=== PATIENT | male | born 1970 | race African-American/Black ===

== ENCOUNTER 2018-10-18 10:27 | Inpatient (IN) | payer MEDICARE, OTHER ==
[~2018-10-18] VITALS: Ht 180.3 cm; Wt 85.7 kg
--- NOTE | 2018-10-18 10:35 | NUR ---
PT BIB [facility] MID CP W/ SOB WHILE IN COURT STARTED 2HRS AGO, PT IS AAOX4, NOT IN RESPIRATORY DISTRESS, VS STABLE, KEPT RESTED AND COMFORTABLE.
--- NOTE | 2018-10-18 10:38 | NUR ---
ER PA AT BED SIDE FOR EVAL.
--- NOTE | 2018-10-18 10:39 | NUR ---
LABS DRAWNED AND SENT TO LAB.
[2018-10-18 10:44] LABS: BASOPHILS # (AUTO) 0.1 /CMM (0.0-0.2); BASOPHILS % (AUTO) 1.1 % (0.0-2.0); EOSINOPHILS % (AUTO) 3.4 % (0.0-6.0); HEMATOCRIT 43 % (39-51); HEMOGLOBIN 14.5 g/dL (13.5-17.5); LYMPHOCYTES % (AUTO) 32.2 % (20.0-44.0); MEAN CORPUSCULAR HGB CONC 34 g/dl (31.0-36.0); MEAN CORPUSCULAR VOLUME 97 fL (80-96); MONOCYTES # (AUTO) 0.8 /CMM (0.1-1.30); MONOCYTES % (AUTO) 12.9 % (2.0-12.0); NEUTROPHILS # (AUTO) 3.1 /CMM (1.8-8.9); NEUTROPHILS % (AUTO) 50.4 % (43.0-81.0); PLATELET COUNT (AUTO) 193 /CMM (150-450); RED BLOOD CELL COUNT(AUTO) 4.45 MIL/uL (4.5-6.0); WHITE BLOOD COUNT (AUTO) 6.2 K/uL (4.3-11.0)
[2018-10-18] MEDS ORDERED: predniSONE 20 MG TABLET ONE (10:48)
--- NOTE | 2018-10-18 10:50 | NUR ---
CALLED RT FOR BREATHING TREAMENT.
[2018-10-18 10:55] LABS: CALCIUM, SERUM 9.2 mg/dL (8.5-10.1); CREATININE 1.1 mg/dL (0.6-1.3); POTASSIUM 3.5 mmol/L (3.5-5.1)
[2018-10-18] MEDS ORDERED: ALBUTEROL FS 2.5 MG/3 ML VIAL.NEB ONE (10:57)
[2018-10-18] MEDS ORDERED: IPRATROPIUM NEB FS 0.5 MG/2.5 ML AMPUL.NEB ONE (10:57)
[2018-10-18] MEDS ORDERED: ALBUTEROL FS 2.5 MG/3 ML VIAL.NEB NEB ONE (11:00)
[2018-10-18] MEDS ORDERED: IPRATROPIUM NEB FS 0.5 MG/2.5 ML AMPUL.NEB NEB ONE (11:00)
[2018-10-18] MEDS ORDERED: predniSONE 20 MG TABLET PO ONE (11:00)
[2018-10-18] MEDS ORDERED: FLUT1DIS3 IH (11:44)
[2018-10-18] MEDS ORDERED: OMEP20CA10 PO (11:44)
[2018-10-18] MEDS ORDERED: ALBU18HF2 IH (11:44)
[2018-10-18] MEDS ORDERED: CELE-85 PO (11:44)
[2018-10-18] MEDS ORDERED: HYDR-3980 PO (11:44)
[2018-10-18] MEDS ORDERED: QUET300T2 PO (11:44)
[2018-10-18] MEDS ORDERED: ASPI-1152 PO (11:44)
[2018-10-18] MEDS ORDERED: CLIN300C11 PO (11:44)
[2018-10-18] MEDS ORDERED: TRAM50TA2 PO (11:44)
--- NOTE | 2018-10-18 11:53 | NUR ---
CALLED NURSING SUP REQUESTED TELE BED FOR THIS PATIENT.
[2018-10-18] MEDS ORDERED: NITROGLYCERIN PACKET 1 GM PACKET TD ONE (12:00)
[2018-10-18] MEDS ORDERED: ASPIRIN 325 MG TABLET PO ONE (12:00)
[2018-10-18] MEDS ORDERED: NITROGLYCERIN PACKET 1 GM PACKET ONE ×2 (12:14→12:16)
[2018-10-18] MEDS ORDERED: ASPIRIN 325 MG TABLET ONE (12:14)
--- NOTE | 2018-10-18 12:19 | NUR ---
ADMIT TO 310-2 TELE DX CHEST PAIN, NSTEMI ACCEPTING CORI ANGEL MD
--- NOTE | 2018-10-18 12:58 | NUR ---
REPORT GIVEN TO PRASHANT RICHARD FOR GAVIN.
[2018-10-18 13:35] VITALS: BP 152/87
[2018-10-18] MEDS ORDERED: Z GUARD REMEDY 2 OZ OINT TP PRN (14:00)
[2018-10-18] MEDS ORDERED: ONDANSETRON HCL/PF 4 MG/2 ML VIAL IVP PRN (14:00)
[2018-10-18] MEDS ORDERED: ACETAMINOPHEN 325 MG TABLET PO PRN (14:00)
[2018-10-18] MEDS ORDERED: MAG HYDROX/AL HYDROX/SIMETH 30 ML UDC PO PRN (14:00)
[2018-10-18] MEDS ORDERED: ZOLPIDEM TARTRATE 5 MG TABLET PO PRN (14:00)
[2018-10-18] MEDS ORDERED: HYDROCODONE/APAP 5/325MG 1 EACH TABLET PO PRN (14:00)
[2018-10-18] MEDS ORDERED: MAGNESIUM HYDROXIDE 30 ML UDC PO PRN (14:00)
--- NOTE | 2018-10-18 14:00 | NUR ---
CORPSMAN NOTES RECEIVED PT. FROM ER IN ROOM 310 BED 2. PT. IS A&OX4. BP WAS ELEVATED, PT. C/O BURNING SENSATION IN CHEST WITHOUT PAIN RADIATING. ADMITTING MD WAS NOTIFIED OF PT.'S SYMPTOMS. NEW ORDERS GIVEN FOR EKG STAT, AND RESULTS WERE SENT TO MD. BELONGINGS WERE CHECKED AND PT. SIGNED PAPER. IV IS INTACT AND PATENT. WILL CONTINUE TO ASSESS AND MONITOR.
[2018-10-18 14:08] VITALS: BP 152/87
[2018-10-18] MEDS ORDERED: HYDROMORPHONE INJ 2 MG/ML DISP.SYRIN IV PRN (14:30)
[2018-10-18] MEDS: PANTOPRAZOLE 40 MG VIAL IV SCH (14:38)
[2018-10-18] MEDS ORDERED: ENOXAPARIN SODIUM 40 MG/0.4 ML DISP.SYRIN SQ SCH ×2 (15:00)
[2018-10-18 16:00] VITALS: BP 164/99
[2018-10-18] MEDS ORDERED: hydrALAZINE HCL IV 20 MG VIAL IV PRN (16:00)
[2018-10-18] MEDS ORDERED: TRAMADOL HCL 50 MG TABLET PO PRN (16:00)
[2018-10-18] MEDS ORDERED: IPRATROPIUM BROMIDE 14 GM INHALER (or 12.9 GM) IH PRN (16:00)
[2018-10-18] MEDS ORDERED: ALBUTEROL FS 2.5 MG/0.5 ML VIAL.NEB ONE (16:31)
[2018-10-18] MEDS: ALBUTEROL FS 2.5 MG/0.5 ML VIAL.NEB NEB SCH ×3 (16:34→22:43)
[2018-10-18] MEDS ORDERED: AZITHROMYCIN 500 MG in IV D5W 250 ML IV SCH (17:00)
[2018-10-18] MEDS ORDERED: IPRATROPIUM NEB FS 0.5 MG/2.5 ML AMPUL.NEB IH PRN ×2 (17:00→17:30)
[2018-10-18] MEDS ORDERED: IPRATROPIUM NEB FS 0.5 MG/2.5 ML AMPUL.NEB NEB PRN (17:30)
[2018-10-18] MEDS ORDERED: CEFTRIAXONE 1 G in IV D5W 50 ML IV SCH ×2 (18:00→21:00)
[2018-10-18] MEDS: methylPREDNISolone SOD SUCC 125 MG/2ML VIAL IV SCH ×2 (18:07→18:09)
--- NOTE | 2018-10-18 19:30 | NUR ---
RN CLOSING NOTES PT. IN BED A&OX4. BREATHING UNLABORED ON ROOM AIR. PT. IS ON TELE MONITOR. NO S/S OF ACUTE DISTRESS. PT. HAS IV ANTIBIOTICS RUNNING. BED IS IN LOWEST, AND LOCKED POSITION. CALL LIGHT WITHIN REACH. ALL NEEDS MET. WILL ENDORSE REPORT TO NURSE.
--- NOTE | 2018-10-18 19:31 | NUR ---
RN Notes Received patient awake, alert and oriented x4, verbalizing feels tired and wants to sleep. On room air and tolerated well. Denies any pain at this time. Tele monitor reads sinus rhythm with inverted T wave with heart rate at 74. IV access on right arm patent and intact with ongoing IV atb infusing well. Patient is ambulatory with steady gait noted. Voiding well. Kept comfortable and attended. Will continue to monitor patient.
[2018-10-18 20:00] VITALS: BP 140/83
[2018-10-18 22:00] VITALS: BP 140/83
[2018-10-18] MEDS ORDERED: QUETIAPINE FUMARATE 100 MG TABLET PO SCH (22:00)
[2018-10-18 23:42] VITALS: BP 138/85
[2018-10-19] MEDS: ALBUTEROL FS 2.5 MG/0.5 ML VIAL.NEB NEB SCH ×3 (03:30→11:39)
[2018-10-19 04:00] VITALS: BP 117/74
--- NOTE | 2018-10-19 06:14 | NUR ---
TRIAGE TREATMENT THERAPIST ASSISTING IN RAPID RESPONSE TO MYNOR SITE.
--- NOTE | 2018-10-19 06:50 | NUR ---
RN Notes Patient slept well overnight, Vital signs stable, afebrile. Patient verbalized he feels better. Denies chest pain, nausea and vomiting. Cough at times, dry cough. Tele monitor readsSinus rhythm with inverted T wave. All needs attended. Will endorse to morning RN for continuity of care.
[2018-10-19 07:12] LABS: BASOPHILS % (AUTO) 0.2 % (0.0-2.0); EOSINOPHILS % (AUTO) 0.1 % (0.0-6.0); HEMATOCRIT 40 % (39-51); HEMOGLOBIN 13.5 g/dL (13.5-17.5); LYMPHOCYTES # (AUTO) 0.6 /CMM (0.8-4.8); LYMPHOCYTES % (AUTO) 5.8 % (20.0-44.0); MEAN CORPUSCULAR HGB CONC 34 g/dl (31.0-36.0); MEAN CORPUSCULAR VOLUME 97 fL (80-96); MONOCYTES # (AUTO) 0.8 /CMM (0.1-1.30); MONOCYTES % (AUTO) 7.7 % (2.0-12.0); NEUTROPHILS % (AUTO) 86.2 % (43.0-81.0); PLATELET COUNT (AUTO) 157 /CMM (150-450); RED BLOOD CELL COUNT(AUTO) 4.13 MIL/uL (4.5-6.0); WHITE BLOOD COUNT (AUTO) 10.5 K/uL (4.3-11.0)
[2018-10-19 07:21] LABS: CALCIUM, SERUM 8.6 mg/dL (8.5-10.1); POTASSIUM 3.7 mmol/L (3.5-5.1)
--- NOTE | 2018-10-19 07:29 | NUR ---
RN OPENING NOTES PT WAS RECEIVED IN BED AT LOWEST AND LOCKED POSITION WITH SIDE RAILS UP X2, A/O X4, BREATHING EVEN AND UNLABORED ON RA, NO S/S OF PAIN OR DISTRESS NOTED, IV PATENT AND INTACT, SAFETY PRECAUTIONS IN PLACE, CALL LIGHT WITHIN REACH, WILL MONITOR ACCORDINGLY
[2018-10-19 07:34] LABS: THYROID STIMULATING HORMONE 0.791 uIU/mL (0.358-3.74)
[2018-10-19 07:41] LABS: PHOSPHORUS 8.9 mg/dL (2.5-4.9)
[2018-10-19 08:47] VITALS: BP 123/82
[2018-10-19] MEDS: methylPREDNISolone SOD SUCC 125 MG/2ML VIAL IV SCH (08:53)
[2018-10-19] MEDS: PANTOPRAZOLE 40 MG VIAL IV SCH (08:53)
[2018-10-19] MEDS ORDERED: CELECOXIB 100 MG CAPSULE PO SCH (09:00)
[2018-10-19] MEDS ORDERED: ATORVASTATIN 10 MG TABLET PO SCH (09:00)
[2018-10-19] MEDS ORDERED: ASPIRIN EC 81 MG TABLET.DR PO SCH (09:00)
[2018-10-19] MEDS ORDERED: FLUTICASONE/VILANTEROL 1 EACH BLST.W.DEV IH SCH (09:00)
[2018-10-19] MEDS ORDERED: ENOXAPARIN SODIUM 100 MG/ML DISP.SYRIN SQ SCH (09:00)
--- NOTE | 2018-10-19 09:00 | NUR ---
RN NOTES RECEIVED CALL FROM LAB REGARDING PT CRITICAL LAB VALUE OF PHOSPHORUS 8.9, DR. ANGEL MADE AWARE, ONLY ORDER GIVEN WAS TO REPEAT PHOS. WILL IMPLEMENT ORDERED
[2018-10-19] MEDS ORDERED: IPRATROPIUM NEB FS 0.5 MG/2.5 ML AMPUL.NEB NEB SCH (13:30)
[2018-10-19] MEDS ORDERED: ALBUTEROL FS 2.5 MG/0.5 ML VIAL.NEB NEB SCH (13:30)
--- NOTE | 2018-10-19 15:24 | NUR ---
LEAVING AMA NOTE PT LEFT AT THIS TIME AGAINST MEDICAL ADVICE, PT STATED HE IS LEAVING BECAUSE HE HAS NOBODY TO TAKE CARE OF HIS DOG AT HOME AND IT HAS BEEN MORE THAN 2 DAYS. HE WAS MADE THAT LEAVING AMA WOULD BE DETRIMENTAL TO HIS HEALTH EVEN AFTER DR. ANGEL AND DR. FARIAS TALKED TO HIM EARLIER THIS MORNING. HE WAS A/O X4, AMBULATORY. HIS IV AND ID WERE REMOVED AND EXITCARE AND D/C PAPERWORK WERE PROVIDED TO HIM WELL.
--- NOTE | 2018-10-19 15:46 | NUR ---
INCIDENT REPORT Unique Id: [id number]
[2018-10-19] MEDS ORDERED: LACTOBACILLUS RHAMNOSUS GG 1 EACH CAP.SPRINK PO SCH (17:00)
[2018-10-19] MEDS ORDERED: methylPREDNISolone SOD SUCC 125 MG/2ML VIAL IV SCH (17:00)
== END 2018-10-19 15:22 | disposition left against medical advice (07) | DRG 281 ==
LOC: ER 10:31 → TELE 12:34 → MED 10-19 09:18
PROVIDERS: ADMIT Student in an Organized Health Care Education/Training Program; ATTEND Student in an Organized Health Care Education/Training Program
DX: I21.A1 Myocardial infarction type 2 (principal); J45.901 Unspecified asthma with (acute) exacerbation; F43.9 Reaction to severe stress, unspecified; K21.9 Gastro-esophageal reflux disease without esophagitis; I25.10 Atherosclerotic heart disease of native coronary artery without angina pectoris; F43.10 Post-traumatic stress disorder, unspecified; W34.00XS Accidental discharge from unspecified firearms or gun, sequela; Z79.82 Long term (current) use of aspirin; Z79.51 Long term (current) use of inhaled steroids; E83.39 Other disorders of phosphorus metabolism; F17.200 Nicotine dependence, unspecified, uncomplicated
CPT/HCPCS: 36415; 71045-TC; 80048-TC; 80061-TC; 83735-TC; 84100-TC; 84443-TC; 84484-TC; 85025-TC; 85730-TC; 87081-TC; 93307-TC; C9113; G0378; J0456; J0696; J1650; J2930; J7050; J7060

== ENCOUNTER 2019-05-02 01:26 | Emergency (ER) | payer MEDICARE, OTHER ==
[~2019-05-02] VITALS: Ht 180.3 cm; Wt 89.8 kg
[~2019-05-02 01:26] MED LIST: ALBU18HF2 IH; ASPI-1152 PO; CELE-85 PO; CLIN300C11 PO; FLUT1DIS3 IH; HYDR-3980 PO; OMEP20CA11 PO; QUET300T2 PO; TRAM50TA2 PO
--- NOTE | 2019-05-02 01:36 | NUR ---
to bed 4 [facility] paramedics c/o of SOB and chest tightness. Patient reports worsening SOB x2 days. Patient also try to walk his dog in the warmth of the day and felt dizziness and weakness. Patient states tonight he was having difficulty breathing then he had tingling to his hands, noted pt hyperventilating. Placed pt on cardiac monitoring, continuous pox, o2@2l/nc. pending er md link.
--- NOTE | 2019-05-02 01:50 | NUR ---
er md at bedside to eval pt with orders received.
[2019-05-02 02:23] LABS: BASOPHILS # (AUTO) 0.1 /CMM (0.0-0.2); BASOPHILS % (AUTO) 1.3 % (0.0-2.0); EOSINOPHILS % (AUTO) 3.4 % (0.0-6.0); HEMATOCRIT 45 % (39-51); HEMOGLOBIN 15.3 g/dL (13.5-17.5); LYMPHOCYTES # (AUTO) 2.5 /CMM (0.8-4.8); LYMPHOCYTES % (AUTO) 32.2 % (20.0-44.0); MEAN CORPUSCULAR HGB CONC 34 g/dl (31.0-36.0); MEAN CORPUSCULAR VOLUME 97 fL (80-96); MONOCYTES # (AUTO) 0.9 /CMM (0.1-1.30); MONOCYTES % (AUTO) 11.9 % (2.0-12.0); NEUTROPHILS % (AUTO) 51.2 % (43.0-81.0); PLATELET COUNT (AUTO) 222 /CMM (150-450); RED BLOOD CELL COUNT(AUTO) 4.62 MIL/uL (4.5-6.0); WHITE BLOOD COUNT (AUTO) 7.7 K/uL (4.3-11.0)
[2019-05-02 02:28] LABS: CALCIUM, SERUM 9.2 mg/dL (8.5-10.1); CARBON DIOXIDE 24 mmol/L (21-32); CHLORIDE 99 mmol/L (98-107); CREATININE 1.1 mg/dL (0.6-1.3); GLUCOSE 101 mg/dL (74-106); POTASSIUM 3.5 mmol/L (3.5-5.1); SODIUM SERUM 136 mmol/L (136-145); UREA NITROGEN, BLOOD 18 mg/dL (7-18)
[2019-05-02] MEDS ORDERED: LORAZEPAM 1 MG TABLET PO ONE (02:30)
[2019-05-02] MEDS ORDERED: LORAZEPAM 1 MG TABLET ONE (02:31)
--- NOTE | 2019-05-02 02:36 | NUR ---
noted pt crying, pt states "my girlfriend and I broke up". pt medicated as ordered by er .
[2019-05-02 02:40] LABS: B-TYPE NATRIURETIC PEPTIDE 10 PG/ML (0-125)
[2019-05-02] MEDS ORDERED: IBUPROFEN 600 MG TABLET PO ONE (03:42)
[2019-05-02] MEDS ORDERED: IBUPROFEN 400 MG TABLET ONE (03:47)
--- NOTE | 2019-05-02 03:49 | NUR ---
Patient discharged to home in stable condition. Written and verbal after care instructions given. Patient verbalizes understanding of instruction. ambulatory with a steady gait noted. pt aaox4 no acute distress noted, resp even and unlabored. advice pt not to frive or oeprate any machinery due to pt was given ativan. pt verbalize understanding.
[2019-05-02 03:50] VITALS: BP 132/73
[2019-05-02] MEDS ORDERED: IBUPROFEN 400 MG TABLET PO ONE (04:00)
== END 2019-05-02 03:51 | disposition home or self-care (01) ==
LOC: ER 01:29
DX: F43.8 Other reactions to severe stress (principal); R06.4 Hyperventilation; J45.909 Unspecified asthma, uncomplicated; I10 Essential (primary) hypertension; F43.10 Post-traumatic stress disorder, unspecified; F10.10 Alcohol abuse, uncomplicated; F17.200 Nicotine dependence, unspecified, uncomplicated; F41.9 Anxiety disorder, unspecified; R00.0 Tachycardia, unspecified; Y90.9 Presence of alcohol in blood, level not specified; Z79.82 Long term (current) use of aspirin
CPT/HCPCS: 36415; 71045-TC; 80048-TC; 83880; 84484-TC; 85025-TC

== ENCOUNTER 2020-05-01 16:54 | Emergency (ER) | payer MEDICARE, OTHER ==
[~2020-05-01] VITALS: Ht 177.8 cm; Wt 97.5 kg
[~2020-05-01 16:54] MED LIST changes: -OMEP20CA11 PO; +OMEP20CA15 PO
--- NOTE | 2020-05-01 17:15 | NUR ---
BIBRA FROM HOME , FACIAL RASH X 3 DAYS. DENIES ANY DIFFICULTY BREATHING. TAKING BENADRYL AT HOME , ATTACHED TO MONITOR , VSS STABLE , WILL CONTINUE TO MONITOR
[2020-05-01] MEDS ORDERED: methylPREDNISolone SOD SUCC 125 MG/2ML VIAL ONE (17:26)
[2020-05-01] MEDS ORDERED: diphenhydrAMINE HCL 50 MG/ML VIAL ONE (17:26)
[2020-05-01] MEDS ORDERED: FAMOTIDINE/PF INJ 20 MG/2 ML VIAL IV ONE ×2 (17:26→17:30)
[2020-05-01] MEDS ORDERED: methylPREDNISolone SOD SUCC 125 MG/2ML VIAL IV ONE (17:30)
[2020-05-01] MEDS ORDERED: diphenhydrAMINE HCL 50 MG/ML VIAL IV ONE (17:30)
--- NOTE | 2020-05-01 18:18 | NUR ---
MD AT BEDSIDE , NOTIFIED PT COMPLAINS OF LEFT EAR SWELLING , MD AWARE
[2020-05-01 18:37] VITALS: BP 125/56
--- NOTE | 2020-05-01 18:38 | NUR ---
DC PATIENT WITH DISCHARGE INSTRUCTIOND AND PRESCRIPTIONS VERBALIZED UNDERSTANDING , PROVIDED TAP CAR AND INSTRUCTED NOT TO DRIVE , PT STABLE NO DISTRESS , SPO2 OF 100% VIA RA , NO ACUTE EVENTS
== END 2020-05-01 18:38 | disposition home or self-care (01) ==
LOC: ER 16:55
DX: T78.40XA Allergy, unspecified, initial encounter (principal); L50.9 Urticaria, unspecified; H60.12 Cellulitis of left external ear; I10 Essential (primary) hypertension; F43.10 Post-traumatic stress disorder, unspecified; J45.909 Unspecified asthma, uncomplicated; F17.200 Nicotine dependence, unspecified, uncomplicated; Z98.890 Other specified postprocedural states; Z79.899 Other long term (current) drug therapy; Z79.82 Long term (current) use of aspirin; X58.XXXA Exposure to other specified factors, initial encounter
CPT/HCPCS: 96374; 96375; 99284; J1200; J2930; J3490